=== PATIENT | male | born 1960 | race Caucasian/White ===

== ENCOUNTER 2020-04-17 08:14 | Day surgery (SDC) | payer OTHER ==
[~2020-04-17] VITALS: Ht 175.3 cm; Wt 90.0 kg
--- NOTE | ~2020-04-17 | HEMODYNAMI ---
PATIENT:SCARLETT MEZA MEDICAL RECORD: [id number] : 62 LOCATION:[facility]# [id number] ADMISSION DATE: 04/17/20 Generatedon:110:59 Patient name: SCARLETT MEZA Patient #: [id number] SSN: : 1960 Date of study: 04/17/2020 Page: Of Hemodynamic Procedure Report Patient Data Patient Demographics Procedure consent was obtained First Name: SCARLETT Gender: Male Last Name: DERRICK : 1960 Middle Initial: A Age: 59 year(s) Patient #: [id number] Race: Unknown Additional ID: [id number] Contact details [address]: [address] [place] [address] State: [place] City: [place] Zip code: [address] Past Medical History Allergies Allergen Reaction Date Comments Reported Penicillins 12/04/2019 Penicillins 02/25/2020 Penicillins 04/17/2020 Admission Admission Data Admission Date: 04/17/2020 Admission Time: 8:14 Procedure Procedure Types Cath Procedure Peripheral Cath Diagnostic Procedure Biliary Procedure Description Procedure Date Procedure Date: 04/17/2020 Procedure Start Time: 10:48 Procedure End Time: 10:58 Procedure Staff Name Function Sergio Trotter MD Performing Physician CHRIS BARBOZA RT Monitor Siva Schrader RT Scrub Lana Rosado RN Nurse Celi Aguilar RN Nurse Procedure Data Cath Procedure Fluoroscopy Diagnostic fluoroscopy Total fluoroscopy Time: 2.7 time: 2.7 min min Contrast Material Contrast Material Type Amount (ml) Isovue 300 37 Diagnostic catheters Device Type Used For End Catheter Placement Merit Impress KA 2 5Fr 40CM catheter ([id number]) Procedure Medications Medication Administration Route Dosage Heparin Flush Bag added to field 1 bags (1000units/500ml NS) Lidocaine 1% added to field 20 Fentanyl I.V. 50 mcg Versed I.V. 1 mg Fentanyl I.V. 50 mcg Versed I.V. 1 mg Hemodynamics Rest Pre Cath Intra NCS Post Cath Vital Signs Time Heart Resp SPO2 etCO2 NIBP (mmHg) Rhythm Pain Sedation Rate (ipm) (%) (mmHg) Status Level (bpm) 10:36:19 57 6 97 26.5 160/89(108) NSR 0 (11) 10(A) , No pain 10:40:38 63 17 95 23.5 158/94(112) NSR 0 (11) 10(A) , No pain 10:44:56 61 37 95 31.8 152/86(127) NSR 0 (11) 10(A) , No pain 10:49:14 63 11 92 34.8 128/68(109) NSR 0 (11) 10(A) , No pain 10:54:13 58 21 97 18.9 Measuring NSR 0 (11) 10(A) , No pain 10:54:21 62 23 97 16.6 166/89(125) NSR 0 (11) 10(A) , No pain 10:58:27 66 29 12.8 140/86(126) NSR 0 (11) 10(A) , No pain Medications Time Medication Route Dose Verified Delivered Reason Notes Effec tiveness by by 10:36:04 Heparin Flush added 1 M J Long M J Long used for Bag to bags MD DAMICO procedure (1000units/500ml field NS) 10:36:18 Lidocaine 1% added 20ml M J Long M J Long used for to vial MD DAMICO procedure field 10:42:42 Fentanyl I.V. 50 M J Long Celi for meliza Aguilar sedation RN 10:42:58 Versed I.V. 1 mg M J Long Celi for MD Aguilar sedation RN 10:43:20 Fentanyl I.V. 50 M J Long Lana for meliza Rosado RN sedation 10:43:30 Versed I.V. 1 mg M J Long Lana for MD Alonzo PETERS sedation Procedure Log Time Note 9:41:20 Use device set IR Diagnostic 9:41:21 Bag Decanter (2002S) opened to sterile field. 9:41:22 Sterile Angiographic Pack opened to sterile field. 9:41:22 Tegaderm 4 x 4 ([id number]) opened to sterile field. 10:27:58 Lana Rosado RN sent for patient. Start room use. 10:28:00 Time tracking: Regular hours (M-F 7:00 - 5:00) 10:28:05 Plan of Care:Hemodynamics will remain stable., Cardiac rhythm will remain stable., Comfort level will be maintained., Respiratory function will remain adequate., Patient/ family verbilizes understanding of procedure., Procedure tolerated without complication., Recovers from procedure without complications.. 10:28:14 Patient received from Outpatients to IR Alert and oriented. Tansferred to table in Supine position. 10:28:18 Signed procedure consent form obtained from patient. 10:28:21 Warm blankets applied, and j carlos hugger turned on for patient comfort. 10:28:21 Correct patient and procedure confirmed by team. 10:28:22 ECG and BP/O2 sat monitors applied to patient. 10:28:24 - 10:28:32 H&P Date Dictated: 04/17/2020 H&P Addendum completed by physician on day of procedure. (MUST COMPLETE FOR ALL OUTPATIENTS). 10:28:34 Pre-procedure instructions explained to patient. 10:28:35 Pre-op teaching completed and patient verbalized understanding. 10:30:09 Patient NPO since Midnight. 10:30:15 Patient allergic to Penicillins 10:30:17 Is the patient allergic to Iodine/contrast media? No. 10:30:19 Is patient on blood thinner?No 10:30:21 Patient diabetic? No. 10:30:25 - 10:30:38 ----Pre-sedation anethsthesia assessment.---- 10:30:42 Previous problem with sedation/anesthesia? No ? 10:30:45 Snore? No 10:30:47 Sleep apnea? No 10:30:48 Deviated septum? No 10:30:49 Opens mouth fully? Yes 10:30:50 Sticks out tongue? Yes 10:30:52 Airway obstruction? No ? 10:30:55 Dentures? No ? 10:30:57 - 10:31:09 IV patent on arrival in left hand with 0.9% NaCl at [facility]. 10:31:26 Right abdomen area was prepped with chlora-prep and draped in sterile fashion 10::28 Alarms reviewed by Gaetano Pope ::28 Sharps counted by scrub and verified by Kristy 10:31:30 - 10:35:09 Vital chart was started 10:36:04 Heparin Flush Bag (1000units/500ml NS) 1 bags added to field was administered by eSrgio Trotter MD; used for procedure; Verbal order read back and verified. 10:36:18 Lidocaine 1% 20ml vial added to field was administered by Sergio Trotter MD; used for procedure; Verbal order read back and verified. 10:40:05 Physician arrived 10:40:37 --------ALL STOP TIME OUT------ 10:40:37 Final Timeout: patient, procedure, and site verified with staff and physician. All members of the team are in agreement. 10:40:41 Right Abdomen site verified by team. 10:42:29 Procedure started. 10:42:29 Full Disclosure recording started 10:42:42 Fentanyl 50 mcg I.V. was administered by Celi Aguilar RN; for sedation; Verbal order read back and verified. 10:42:58 Versed 1 mg I.V. was administered by Celi Aguilar RN; for sedation; Verbal order read back and verified. 10:43:20 Fentanyl 50 mcg I.V. was administered by Lana Rosado RN; for sedation ; Verbal order read back and verified. 10:43:30 Versed 1 mg I.V. was administered by Lana Rosado RN; for sedation; Verbal order read back and verified. 10:48:30 Local anesthetic to Abdominal area with Lidocaine 1% by Sergio Trotter MD.INITIAL ACCESS ONLY 10:49:06 SHEATH PINNACLE 10FR 25CM ([id number]) opened to sterile field. 10:49:07 GLIDE WIRE ANGLE 180cm ([id number]) opened to sterile field. 10:49:07 RACHEL .035 15cm wire ([id number]) opened to sterile field. 10:52:01 A [email or web address] KA 2 5Fr 40CM catheter ([id number]) was opened to sterile field. 10:55:04 Procedure ended.(Physican Out) 10:55:23 Fluoroscopy time 02.70 minutes. 10:55:26 Dose Area Product 97 mGy/cm. 10:55:29 Contrast amount:Isovue 300 37ml. 10:55:32 Sharps counted by scrub and verified by R.N. 10:55:34 Insertion/operative site no bleeding no hematoma. 10:55:39 Post-op/insertion site Right Abdominal area dressed using a 4 x 4 and Tegaderm. 10:55:45 Procedure and supply charges have been captured, reviewed, submitted an d are correct. 10:58:37 Vital chart was stopped 10:58:42 Procedure ended. 10:58:42 Full Disclosure recording stopped Device Usage Item Name Manufacture Quantity Catalog Hospital Part Current [facility] l Lot# / Number Charge Number Stock Stock Serial# Code Bag Decanter Microtek 1 [id number] 5 () [employer] Sterile Cardinal 1 [id number] [id number] [id number] 5 Angiographic Health Pack Tegaderm 4 x 3M 1 1626W [id number] 921418 [id number] 5 4 (1626W) SHEATH Terumo 1 [id number] 209619 [id number] 1 PINNACLE 10FR 25CM ([id number]) GLIDE WIRE Terumo 1 [id number] 520029 435949 076653 5 ANGLE 180cm ([id number]) RACHEL .035 [employer] 1 [id number] 996401 702575 5 15cm wire ([id number]) Merit Merit 1 [id number] 597636 093852 5 Impress KA 2 Medical 5Fr 40CM catheter ([id number]) Signature Audit [place] Stage Time Signature Unsigned Intra-Procedure 04/17/2020 CHRIS BARBOZA RT 10:59:06 AM (R) [facility] [address] [id number]
[~2020-04-17 08:14] MED LIST: ULTRAM50 MG PO
[2020-04-17 09:13] VITALS: BP 138/82; BMI 29.3
[2020-04-17 09:54] LABS: APTT 25.1 SECONDS (22.8-39.4); INR 1.08 (0.85-1.17)
[2020-04-17 09:58] LABS: BASOPHILS 0.6 % (0-2); EOSINOPHILS 2.6 % (0-7); HEMATOCRIT 39.8 % (42.0-54.0); LYMPHOCYTE ABS# 0.78 10x3/uL (1.32-3.57); LYMPHOCYTES 25.2 % (15-50); MCH 31.1 pg (26.0-34.0); MCHC 35.2 g/dL (31.0-37.0); MCV 88.4 fL (80.0-100.0); MEAN PLATELET VOLUME 9.7 fL (7.4-10.4); MONOCYTES 8.7 % (2-11); NEUTROPHIL ABS# 1.95 10x3/uL (1.78-5.38); NEUTROPHILS 62.9 % (40-80); RDW 12.5 % (11.5-14.5); WBC 3.1 10x3/uL (4.8-10.8)
[2020-04-17 09:59] LABS: ALBUMIN 3.5 g/dL (3.4-5.0); ALKALINE PHOSPHATASE 65 U/L (30-120); ALT (SGPT) 22 U/L (10-68); BILIRUBIN - TOTAL 0.64 mg/dL (0.2-1.3); CALC OSMOLALITY 278 mosm/kg (275-300); CALCIUM 8.3 mg/dL (8.5-10.1); CARBON DIOXIDE 24.8 mmol/L (21.0-32.0); CHLORIDE - SERUM 106 mmol/L (98-107); CREATININE - SERUM 0.7 mg/dL (0.6-1.3); GLUCOSE 96 mg/dL (74-106); PROTEIN - SERUM 6.9 g/dL (6.4-8.2); SODIUM 139 mmol/L (136-145); UREA NITROGEN 14 mg/dL (7-18); eGFR NON AFRICAN AMERICAN > 90 mL/min (90-120)
[2020-04-17 10:02] LABS: PLATELET COUNT 156 10x3/uL (130-400)
--- NOTE | 2020-04-17 14:04 | NUR ---
1120 VITAL SIGNS AND SITE ASSESSMENT ON POST PROCEDURE FORM IN PAPER CHART FOR DOCUMENTATION. 1303 IV DC'D. CATHETER TIP INTACT. NO BLEEDING AT SITE. COBAN DRESSING APPLIED. REVIEWED DISCHARGE INSTRUCTIONS WITH PT. PAPERWORK GIVEN TO GUARDS.
[2020-04-20 09:06] VITALS: Ht 175.3 cm; Wt 90.0 kg
== END 2020-04-17 13:10 | disposition home or self-care (01) ==
LOC: D.SP 08:14 → D.RAD 10:30 → EDSTATUS 10:30 → D.SP 13:10
PROVIDERS: Radiology Vascular & Interventional Radiology; ATTEND Surgery
DX: K83.1 Obstruction of bile duct (principal)